=== PATIENT | female | born 1960 | race Asian ===

== ENCOUNTER 2017-02-19 15:28 | Emergency (ER) | payer OTHER ==
[2017-02-19] MEDS ORDERED: MULTIVITAMINS 1,000 ML IV ONE (16:09)
[2017-02-19 16:33] LABS: ABSOLUTE NEUTROPHIL COUNT 7.4 K/mm3 (1.8-7.7); BASO % 0.5 % (0.2-1.0); EOS # 0.1 (0.0-0.5); EOS % 1.1 % (0.9-2.9); HEMATOCRIT 41.5 % (37.0-47.0); IMM NEUT% 0.3 % (0-1); LYMPH # 0.8 (1.0-4.8); LYMPH % 9.1 % (15-45); MEAN CELL VOLUME 95.2 fl (81.0-99.0); MEAN CORPUSCULAR HEMOGLOBIN 32.1 pg (27.0-31.0); MEAN CORPUSCULAR HGB CONC 33.7 g/dl (33.0-37.0); MEAN PLATELET VOLUME 8.8 fl (7.4-10.4); MONO # 0.4 (0.0-0.8); MONO % 4.6 % (4-12); NEUT % 84.4 % (43-75); PLATELET COUNT 152 K/mm3 (130-400); RED CELL DISTRIBUTION WIDTH 14.3 % (11.5-14.5)
[2017-02-19] MEDS ORDERED: ACETAMINOPHEN 500 MG TABLET ONE (16:50)
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
[2017-02-19 16:58] LABS: ALB/GLOB RATIO 1.1 (>1.0); ALBUMIN 3.9 gm/dL (3.5-5.7); CALCIUM 8.9 mg/dL (8.6-10.3)
[2017-02-19] MEDS ORDERED: IBUPROFEN 600 MG TABLET ONE (17:30)
== END 2017-02-19 20:03 | disposition home or self-care (01) ==
LOC: ED 15:28
DX: S06.0X9A Concussion with loss of consciousness of unspecified duration, initial encounter (principal); S02.2XXA Fracture of nasal bones, initial encounter for closed fracture; S80.211A Abrasion, right knee, initial encounter; S80.212A Abrasion, left knee, initial encounter; M47.812 Spondylosis without myelopathy or radiculopathy, cervical region; F10.229 Alcohol dependence with intoxication, unspecified; Y90.8 Blood alcohol level of 240 mg/100 ml or more; Y09 Assault by unspecified means; Y92.9 Unspecified place or not applicable
CPT/HCPCS: 83690; 85025; 80053; 80307; 83735; 72125; 70450; 70486; 99284 ×2; A9270 ×2